=== PATIENT | female | born 1995 | race American Indian/Alaskan Native ===

== ENCOUNTER 2020-05-15 11:07 | Emergency (ER) | payer SELFPAY | END 2020-05-15 11:09 | disposition left against medical advice (07) | LOC: ED 11:07 | DX: Z53.21 Procedure and treatment not carried out due to patient leaving prior to being seen by health care provider (principal) ==

== ENCOUNTER 2020-06-08 21:39 | Outpatient (CLI) | payer BC, MEDICAID ==
[2020-06-08 22:06] VITALS: BP 131/83
[2020-06-08] MEDS ORDERED: LACTATED RINGERS 1,000 ML IV ONE (22:13)
[2020-06-08 23:01] LABS: Bilirubin,Urine NEG (Negative); Blood,Urine LG (Negative); Color,Urine Yellow (Yellow); Mucus,Urine FEW /HPF
[2020-06-08 23:03] LABS: RBC,Urine > 182.0 /HPF (0.0-6.0); WBC,Urine > 182.0 /HPF (0.0-6.0)
== END 2020-06-08 23:15 | disposition home or self-care (01) ==
LOC: TRG 21:39 → APU 23:01 → TRG 23:15
PROVIDERS: ATTEND Obstetrics & Gynecology
DX: O23.42 Unspecified infection of urinary tract in pregnancy, second trimester (principal); Z3A.21 21 weeks gestation of pregnancy
CPT/HCPCS: 59025; 81001; 87076; 87086; 87186

== ENCOUNTER 2020-07-07 20:23 | Outpatient (CLI) | payer MEDICAID ==
[2020-07-07 21:03] VITALS: BP 110/77
[2020-07-07] MEDS ORDERED: LACTATED RINGERS 1,000 ML IV ONE (21:13)
[2020-07-07 22:05] LABS: Bacteria,Urine 2+ /HPF (Negative); Bilirubin,Urine NEG (Negative); Blood,Urine LG (Negative); Color,Urine Yellow (Yellow); Urobilinogen,Urine < 2.0 mg/dL (<2.0)
[2020-07-07 22:07] LABS: RBC,Urine > 182.0 /HPF (0.0-6.0)
--- NOTE | 2020-07-07 23:09 | Ultrasound Report ---
EXAMINATION: Renal/Retroperitoneal Ultrasound INDICATION: Hematuria. Recurrent UTI COMPARISON: None Findings: Both kidneys are normal in size and cortical echogenicity. The right kidney measures 10.3 cm in lengt h. The left kidney measures 11.4 cm. There is no evidence of hydronephrosis. The urinary bladder appears normal. Impression: 1. No sonographic abnormality of the kidneys. Signer Name: Mela Neil MD Signed: 07/07/2020 11:05 PM Workstation Name: [id number]
== END 2020-07-07 23:20 | disposition home or self-care (01) ==
LOC: TRG 20:23 → APU 20:25 → TRG 23:20
PROVIDERS: ATTEND Obstetrics & Gynecology
DX: O23.42 Unspecified infection of urinary tract in pregnancy, second trimester (principal); Z3A.25 25 weeks gestation of pregnancy
CPT/HCPCS: 59025; 76770; 81001

== ENCOUNTER 2020-09-02 12:19 | Outpatient (CLI) | payer MEDICAID ==
[2020-09-02 13:04] VITALS: BP 110/69
[2020-09-02 13:40] LABS: Bacteria,Urine 4+ /HPF (Negative); Bilirubin,Urine NEG (Negative); Blood,Urine LG (Negative); Color,Urine Yellow (Yellow); Mucus,Urine FEW /HPF; Urobilinogen,Urine < 2.0 mg/dL (<2.0)
[2020-09-02 13:45] LABS: RBC,Urine > 182.0 /HPF (0.0-6.0); WBC,Urine > 182.0 /HPF (0.0-6.0)
== END 2020-09-02 14:24 | disposition home or self-care (01) ==
LOC: TRG 12:19 → APU 12:31 → TRG 14:24
PROVIDERS: ATTEND Obstetrics & Gynecology
DX: O36.8130 Decreased fetal movements, third trimester, not applicable or unspecified (principal); Z3A.33 33 weeks gestation of pregnancy
CPT/HCPCS: 59025; 81001